=== PATIENT | female | born 1960 | race Asian ===

== ENCOUNTER 2023-07-10 09:14 | Day surgery (SDC) | payer OTHER ==
[~2023-07-10] VITALS: Ht 154.9 cm; Wt 54.4 kg
[2023-07-10] MEDS ORDERED: fentaNYL citrate 0.05 MG/ML VIAL ONE (13:34)
[2023-07-10] MEDS ORDERED: LIDOCAINE 2% 100 MG/5 ML UJET TP ONE (13:34)
[2023-07-10] MEDS ORDERED: MIDAZOLAM 2 MG/2 ML VIAL ONE (13:34)
[2023-07-10] MEDS ORDERED: fentaNYL citrate 0.05 MG/ML VIAL IVP ONE (15:15)
[2023-07-10] MEDS ORDERED: MIDAZOLAM 2 MG/2 ML VIAL IVP ONE (15:15)
== END 2023-07-10 14:50 | disposition home or self-care (01) ==
LOC: MDS 09:14 → MMU 11:26 → MDS 14:50 → MMU 14:50
PROVIDERS: ATTEND Internal Medicine Gastroenterology
DX: Z12.11 Encounter for screening for malignant neoplasm of colon (principal); K29.70 Gastritis, unspecified, without bleeding; K21.9 Gastro-esophageal reflux disease without esophagitis; I10 Essential (primary) hypertension; F41.9 Anxiety disorder, unspecified; E78.00 Pure hypercholesterolemia, unspecified; Z79.899 Other long term (current) drug therapy
CPT/HCPCS: 36415; 43239; 45378; 86677; J2250; J3010